=== PATIENT | male | born 1980 | race Caucasian/White ===

== ENCOUNTER 2025-01-14 09:57 | Outpatient (CLI) | payer MEDICARE, MEDICAID, SELFPAY ==
[2025-01-14 15:13] LABS: Hematocrit 47.6 % (42.0-52.0); Hemoglobin 16.4 g/dL (14.1-18.0); Immature Granulocytes % 0.2 %; Mean Corpuscular HGB Conc 34.5 g/dL (31.8-35.4); Mean Corpuscular Hemoglobin 29.0 pg (27.0-31.2); Mean Corpuscular Volume 84.1 fl (80-94); Nucleated Red Blood Cells % 0 %; Platelet Count 167 K/mm3 (142-424); Red Blood Count 5.66 M/mm3 (4.60-6.20); Red Cell Distribution Width-SD 37.0 fL; White Blood Count 5.3 K/mm3 (4.8-10.8)
[2025-01-14 15:42] LABS: Hemoglobin A1C 5.7 % (4.0-6.0)
[2025-01-14 15:51] LABS: Albumin Level 4.7 g/dl (3.5-5.0); Chloride 100 mmol/L (98-107); Potassium 4.1 mmoL/L (3.5-5.1); Sodium 136 mmol/L (136-145)
[2025-01-14 15:54] LABS: Alanine Aminotransferase 82 U/L (12-78); Albumin/Globulin Ratio 1.4 (1.1-1.8); Alkaline Phosphatase 64 U/L (38-126); Anion Gap 13.1 mEq/L (5-15); Aspartate Amino Transferase 54 U/L (17-59); Bilirubin,Total 0.9 mg/dl (0.2-1.3); Blood Urea Nitrogen 12 mg/dl (9-20); Calcium 8.9 mg/dl (8.4-10.2); Carbon Dioxide 27 mmol/L (22.0-30.0); Creatinine,Serum 0.90 mg/dl (0.66-1.25); Estimated Glomerular Filt Rate 93 ml/min (>60); GFR (African American) 112 ML/MIN (>60); Globulin 3.3 g/dL (1.3-3.2); Glucose 119 mg/dl (74-100); Total Protein,Serum 8.0 g/dl (6.3-8.2)
[2025-01-14 16:24] LABS: Thyroid Stimulating Hormone 3.85 uIU/mL (0.465-4.68)
[2025-01-14 17:02] LABS: Free T4 (Free Thyroxine) 1.29 ng/dl (0.78-2.19)
[2025-01-19 08:38] LABS: Free Testosterone (Direct) 2.0 pg/mL (6.8-21.5); Testosterone, Total, LC/MS 152.9 ng/dL (264.0-916.0)
== END 2025-01-14 23:59 | disposition home or self-care (01) ==
LOC: LAB.DROPOF 01-15 09:57
PROVIDERS: PCP Family Medicine; Visit Provider Family Medicine
DX: Q55.1 Hypoplasia of testis and scrotum (principal); I10 Essential (primary) hypertension; E66.01 Morbid (severe) obesity due to excess calories; R53.83 Other fatigue; R73.9 Hyperglycemia, unspecified
CPT/HCPCS: 80053; 83036; 84402; 84403; 84439; 84443; 85025